=== PATIENT | female | born 1940 | race Caucasian/White ===

== ENCOUNTER → 2017-02-20 | Outpatient (CLI) | payer MEDICARE, OTHER ==
[~2017-02-20] MED LIST: ACETAMINOPHEN PO; ASACOL HD800 MG PO; ATIVAN PO; BENTYL20 MG PO; CALCIUM 500 +1 EAC2 PO; FLAGYL PO; MULTI VITAMIN1 EACH PO; OMEPRAZOLE20 M1 PO; ONDANSETRON ODT4 MG PO; PREDNISONE PO; QUESTRAN LIGH4 G/PKT PO; VITAL-D RX TABL1 TAB PO; WELCHOL625 MG PO; XIFAXAN550 MG PO; ZOCOR PO; ZOFRAN ODT4 MG PO; [UNRECOGNIZED DRUG - OTHER] PO
--- NOTE | ~2017-02-20 | MY11 ---
[facility] A Service of [facility] RADIOLOGY TEXT RESULTS PATIENT: DAVID WELLS LOCATION: [facility] : 38 UNIT #: [id number] AGE: [address]: Kimmie Goodwin MD SEX: F ORDER DR: [id number] [facility] [address] [place], [place] [address] [id number] O MR#: [id number] Acc #: [id number] NAME: DAVID WELLS. : 1940 SEX: F STUDY DATE/TIME: 02/20/2017 9:52 UNIT: [facility] ROOM: STUDY DESCRIPTION: MY Mammogram Screening Dig Jaden Attending Physician: Kimmie Goodwin M.D. Referring Physician: Kimmie Ladd D.O. Ordering Physician: Kimmie Goodwin M.D. Primary Care Physician: Kimmie Goodwin M.D. MEDICAL IMAGING REPORT This report is preliminary unless electronic signature is present EXAM Digital screening mammogram 02/20/2017. [facility] HISTORY 76-year-old woman no risk elevation. Annual screening. COMPARISON: Mammograms date to 06/03/2006 with most recent screening comparison 02/20/2016. Digital imaging of each breast was completed utilizing screening protocol. Review includes FDA-approved CAD device. Breast parenchyma is fatty replaced. Calcifications bilaterally have characteristics of dermal origin. I see no suspicious mass and no interval occurring microcalcifications or architectural deformity. IMPRESSION Negative mammogram. Annual screening recommended. Patients over the age of 40 are entered into a reminder system with target due date for the next mammogram. A result letter will also be sent to the patient. BIRADS: 1 - negative Dictated by... Can Aguilera M.D. THIS IS AN ELECTRONICALLY VERIFIED REPORT Can Aguilera M.D. at 02/20/2017 11:51 AM JBB/cmm [facility] A Service of [facility] RADIOLOGY TEXT RESULTS PATIENT: DAVID WELLS LOCATION: [facility] : 38 UNIT #: [id number] AGE: [address]: Kimmie Goodwin MD SEX: F ORDER DR: TD: 02/20/2017 10:20 JOB #: [id number] MEDICAL IMAGING REPORT Page 1 of 1 COPY
== END | disposition home or self-care (01) ==
LOC: CWCC 09:25
DX: Z12.31 Encounter for screening mammogram for malignant neoplasm of breast (principal)
CPT/HCPCS: G0202